=== PATIENT | female | born 1985 | race American Indian/Alaskan Native ===

== ENCOUNTER 2017-10-08 09:49 | Outpatient (CLI) | payer MEDICAID ==
--- NOTE | 2017-10-08 12:12 | Ultrasound Report ---
ULTRASOUND BIOPHYSICAL PROFILE: History: Nonreassuring heart rate pattern Technique: Transabdominal ultrasound with Doppler interrogation. 2 - breathing movements 2 - movements 2 - posture and tone 2 - Qualitative amniotic fluid volume 8 - TOTAL SCORE OF POSSIBLE 8 Heart Rate (bpm) 145
--- NOTE | 2017-10-08 12:14 | Ultrasound Report ---
ULTRASOUND OB LIMITED History: Nonreassuring heart tracing Technique: Transabdominal ultrasound with Doppler interrogation. Gestation: Single Position: Cephalic Amniotic Fluid: Normal ARAM = 11.9 cm Heart Rate: 145 BPM
[2017-10-08 13:56] VITALS: BP 128/70
== END 2017-10-08 14:10 | disposition home or self-care (01) ==
LOC: TRG 09:49
PROVIDERS: ATTEND Obstetrics & Gynecology
DX: O47.1 False labor at or after 37 completed weeks of gestation (principal); Z3A.39 39 weeks gestation of pregnancy
CPT/HCPCS: 59025; 76815; 76819

== ENCOUNTER 2017-10-09 09:20 | Outpatient (CLI) | payer MEDICAID ==
[2017-10-09 09:59] VITALS: BP 128/84
== END 2017-10-09 10:20 | disposition left against medical advice (07) ==
LOC: TRG 09:20
PROVIDERS: ATTEND Obstetrics & Gynecology
DX: O47.1 False labor at or after 37 completed weeks of gestation (principal); Z3A.39 39 weeks gestation of pregnancy
CPT/HCPCS: 59025

== ENCOUNTER 2017-10-09 23:24 | Inpatient (IN) | payer MEDICAID ==
[2017-10-09] MEDS ORDERED: LACTATED RINGERS 1,000 ML IV ONE (23:46)
[2017-10-10] MEDS ORDERED: STADOL IV PRN (00:12)
[2017-10-10] MEDS ORDERED: LACTATED RINGERS 1,000 ML ONE (00:36)
[2017-10-10 00:38] LABS: Basophils # (Auto) 0.1 K/mm3 (0.0-0.1); Basophils % (Auto) 0.7 % (0.0-1.8); Eosinophils % (Auto) 0.4 % (0.0-4.3); Hematocrit 32.8 % (30.3-42.9); Hemoglobin 10.1 gm/dl (10.1-14.3); Lymphocytes # (Auto) 3.3 K/mm3 (1.2-5.4); Lymphocytes % (Auto) 35.4 % (13.4-35.0); Mean Corpuscular HGB Conc 31 % (30-34); Monocytes # (Auto) 1.2 K/mm3 (0.0-0.8); Monocytes % (Auto) 12.3 % (0.0-7.3); Red Blood Count 4.95 M/mm3 (3.65-5.03)
[2017-10-10 00:40] LABS: Mean Corpuscular Volume 66 fl (79-97)
[2017-10-10 00:41] LABS: Mean Corpuscular Hemoglobin 20 pg (28-32); Platelet Count 170 K/mm3 (140-440)
[2017-10-10] MEDS ORDERED: NARCAN 2 MG/2 ML IV PRN (00:51)
--- NOTE | 2017-10-10 00:55 | Anesthesia Consultation ---
Anesthesia Consult and Med Hx Date of service: 10/10/17 - Airway Anesthetic Teeth Evaluation: Good ROM Head & Neck: Adequate Mental/Hyoid Distance: Adequate Mallampati Class: Class II Intubation Access Assessment: Good - Pulmonary Exam CTA: Yes - Cardiac Exam Cardiac Exam: RRR - Pre-Operative Health Status ASA Pre-Surgery Classification: ASA2 Proposed Anesthetic Plan: Epidural, Spinal - Pre-Anesthesia Comment Pre-Anesthesia Comments: 31y @ 39.4 - Pulmonary Hx Smoking: No Hx Asthma: No COPD: No Hx Pneumonia: No - Cardiovascular System Hx Hypertension: No Hx Coronary Artery Disease: No - Central Nervous System Hx Seizures: No Hx Psychiatric Problems: No - Endocrine Hx Renal Disease: No Hx End Stage Renal Disease: No Hx Liver Disease: No Hx Insulin Dependent Diabetes: No Hx Hypothyroidism: No Hx Hyperthyroidism: No - Hematic Hx Anemia: No Hx Sickle Cell Disease: No - Other Systems Hx Alcohol Use: No
[2017-10-10 00:59] LABS: Alanine Aminotransferase 10 units/L (7-56)
[2017-10-10] MEDS ORDERED: fentaNYL-BUPIV 2 MCG/ML-0.125% 200 MCG/100 ML BAG EPIDURAL SCH (01:00)
[2017-10-10 01:11] LABS: Uric Acid 4.9 mg/dL (3.5-7.6)
[2017-10-10 01:25] LABS: Bilirubin,Urine NEG (Negative); Blood,Urine NEG (Negative); Color,Urine Yellow (Yellow); Mucus,Urine 1+ /HPF; Nitrite,Urine NEG (Negative)
[2017-10-10] MEDS ORDERED: XYLOCAINE MPF 2% ONE (01:27)
[2017-10-10] MEDS: ePHEDrine SULFATE IV PRN ×2 (01:48→02:21)
[2017-10-10] MEDS ORDERED: PITOCin/NS 20 UNIT/1000ML DRIP 0 MILLIUNITS/0 ML BAG IV ONE (02:32)
--- NOTE | 2017-10-10 03:30 | History and Physical Report ---
History of Present Illness Date of examination: 10/10/17 Date of admission: 10/10/17 00:11 History of present illness: 31 yo LMP EDC 10/12/17 @ 39.5 weeks presented to triage at 6cm. Voiced contractions started at 1800 this evening. Denies LOF or vaginal bleeding. Good FM reported. Second trimester entry at 14 weeks into care. course complicated by anemia with iron BID and obesity. She is GBS negative. Past History Past Medical History: no pertinent history Past Surgical History: no surgical history Family/Genetic History: diabetes, hypertension Social history: no significant social history - Obstetrical History Expected Date of Delivery: 10/12/17 Actual Gestation: 39 Week(s) 5 Day(s) : 4 Para: 3 Hx # Term Pregnancies: 3 Number of Living Children: 3 Medications and Allergies Allergies Allergy/AdvReac Type Severity Reaction Status Date / Time No Known Allergies Allergy Verified 11/24/14 11:45 Home Medications Medication Instructions Recorded Confirmed Last Taken Type No Known Home Medications [No 10/10/17 10/10/17 Unknown History Reported Home Medications] Vit No.130/Iron/Folic 1 each PO 10/10/17 10/09/17 History [ Tablet] Active Meds: Active Medications Butorphanol Tartrate (Stadol) 2 mg IV Q2H PRN PRN Reason: Labor Pain Ephedrine Sulfate (Ephedrine Sulfate) 10 mg IV Q2M PRN PRN Reason: Hypotension Last Admin: 10/10/17 02:21 Dose: 10 mg Lactated Ringer's (Lactated Ringers) 1,000 mls @ 125 mls/hr IV BOLUS ONE Stop: 10/10/17 07:45 Last Admin: 10/10/17 01:00 Dose: 125 mls/hr Fentanyl/Bupivacaine/Sodium Chlor (Fentanyl-Bupiv 2 Mcg/Ml-0.125%) 200 mcg in 100 mls @ 12 mls/hr EPIDURAL TITR DEENA PRN Reason: Protocol Last Admin: 10/10/17 01:31 Dose: 12 mls/hr Naloxone HCl (Narcan 2 Mg/2 Ml) 0.2 mg IV Q5M PRN PRN Reason: Respiratory sedation Review of Systems All systems: negative Genitourinary: normal appearance, contractions, no vaginal bleeding, no leakage of fluid, no genital sores - Vital Signs Vital signs: Vital Signs Temp Resp 98.0 F 18 10/09/17 23:25 10/09/17 23:25 Temp Pulse Resp BP Pulse Ox 99.5 F 101 H 22 115/59 100 10/10/17 02:21 10/10/17 03:12 10/10/17 02:21 10/10/17 03:00 10/10/17 03:12 - Physical Exam Breasts: Positive: deferred Lungs: Positive: Normal air movement Abdomen: Positive: normal appearance, soft Genitourinary (Female): Positive: normal external genitalia, normal perenium Vagina: Positive: normal moisture - Obstetrical FHR: category 1 Uterine Contraction Monitor Mode: External Cervical Dilatation: 10 Cervical Effacement Percentage: 100 station: -2 Uterine Contraction Frequency (min): 2 Uterine Contraction Pattern: Regular Uterine Tone Measurement Phase: Resting Uterine Contraction Intensity: Moderate Results Result Diagrams: 10/10/17 00:00 10/10/17 00:00 Abnormal lab results 10/10/17 10/10/17 Range/Units 00:00 00:00 MCV 66 L (79-97) fl MCH 20 L (28-32) pg RDW 19.0 H (13.2-15.2) % Lymph % (Auto) 35.4 H (13.4-35.0) % Cotton % (Auto) 12.3 H (0.0-7.3) % Cotton # 1.2 H (0.0-0.8) K/mm3 Creatinine 0.5 L (0.7-1.2) mg/dL Lactate Dehydrogenase 213 H (91-180) units/L All other labs normal. Assessment and Plan A: IUP at term Second Stage Labor AROM-meconium fluid P: Poor maternal pushing effort Passive Descent NICU team for delivery
[2017-10-10] MEDS ORDERED: PITOCin/NS 20 UNIT/1000ML DRIP 20,000 MILLIUNITS/1,000 ML BAG IV ONE (04:35)
[2017-10-10] MEDS ORDERED: METHERGINE IM ONE ×2 (04:49→04:58)
--- NOTE | 2017-10-10 04:57 | Procedure Note ---
OB Delivery Note - Delivery Date of Delivery: 10/10/17 (7-11oz female @ 0438) Surgeon: JEANCARLOS RENDON Estimated blood loss: other (400) - Vaginal Delivery presentation: vertex Delivery position: OP Intrapartum events: none Delivery induction: none Delivery monitor: external FHT, external uterine Route of delivery: Delivery placenta: spontaneous Delivery cord: nuchal cord (loose x 1 reduced), 3 umbilical vessels Episiotomy: none Delivery laceration: none Anesthesia: epidural - A at 1 minute: 8 at 5 minutes: 9 Infant Gender: Female (Pushed for viable female. NICU present. Grimace at delivery. to warmer for NICU team evaluation. Bulb suctined only. skin to skin. Spont. placenta, cord blood collected. Pitocin infusing. Heavy lochia. Fundus messaged firm. bleeding continues to be moderate. Sweep of vagina with gauze, trailing membranes removed with small clots. Bleeding small. Methergine 0.2mg IM given. Perineal skid shayy only. on repair. Mother and infant stable.)
[2017-10-10] MEDS ORDERED: NORCO 5/325 PO PRN (04:59)
[2017-10-10] MEDS ORDERED: MILK OF MAGNESIA PO PRN (04:59)
[2017-10-10] MEDS ORDERED: LANSINOH TP PRN (04:59)
[2017-10-10] MEDS ORDERED: TYLENOL PO PRN (04:59)
[2017-10-10] MEDS ORDERED: TUCKS PAD TP PRN (04:59)
[2017-10-10] MEDS ORDERED: MOTRIN PO SCH (05:00)
[2017-10-10] MEDS ORDERED: SODIUM CHLORIDE FLUSH SYRINGE 10 ML IV PRN (05:00)
[2017-10-10] MEDS ORDERED: PITOCin/NS 20 UNIT/1000ML DRIP 20 UNITS/1,000 ML BAG IV SCH (05:00)
[2017-10-10] MEDS ORDERED: MOTRIN PO PRN (08:47)
[2017-10-10] MEDS ORDERED: MORPHINE IV NR (09:00)
[2017-10-10] MEDS: MOTRIN PO PRN (12:24)
[2017-10-10] MEDS: PRENATAL VITAMIN PO SCH (12:24)
[2017-10-10] MEDS: PERCOCET 5/325 PO PRN ×2 (14:00→17:57)
[2017-10-10 17:26] LABS: Hematocrit 27.8 % (30.3-42.9); Hemoglobin 8.7 gm/dl (10.1-14.3)
[2017-10-11] MEDS: MOTRIN PO PRN ×2 (00:42→12:00)
[2017-10-11] MEDS: PERCOCET 5/325 PO PRN ×2 (00:43→12:00)
[2017-10-11] MEDS ORDERED: M-M-R II VACCINE SUB-Q ONE (04:59)
[2017-10-11] MEDS ORDERED: BOOSTRIX IM ONE (06:00)
--- NOTE | 2017-10-11 11:17 | Progress Note ---
Assessment and Plan O: Elevated BP yesterday. NL now PIH panel negative A: Stable PP Day 1 Anemia P: Iron BID D/C home Rx meds Subjective - Subjective Date of service: 10/11/17 Interval history: 31 yo LMP EDC 10/12/17 @ 39.5 weeks presented to triage at 6cm. Voiced contractions started at 1800 this evening. Denies LOF or vaginal bleeding. Good FM reported. Second trimester entry at 14 weeks into care. course complicated by anemia with iron BID and obesity. She is GBS negative. Patient reports: appetite normal, voiding normally, pain well controlled, flatus , ambulating normally, other (c/o heavy vaginal bleeding since delivery with clots. Denies PIH S&S) : doing well, nursing well Objective - Vital Signs Latest vital signs: Vital Signs Temp Pulse Resp BP Pulse Ox 10/11/17 09:05 98.6 F 96 H 20 131/78 100 10/11/17 01:43 18 10/11/17 01:42 18 10/11/17 00:43 18 10/11/17 00:42 18 10/10/17 23:45 98.0 F 82 20 132/74 100 10/10/17 17:57 20 10/10/17 14:00 20 10/10/17 12:24 98.3 F 86 20 129/77 Intake and Output 10/10/17 10/11/17 10/11/17 22:59 06:59 14:59 Intake Total 480 600 480 Output Total 200 Balance 280 600 480 Intake: Oral 480 240 360 Intake, Free Water 360 120 Output: Urine 200 Void 200 Other: Total, Intake Amount 120 240 360 Total, Output Amount 200 Voiding Method Toilet # Voids Void 1 1 1 - Exam Narrative Exam: evaluation of bleeding. Scant. tiny clots with voiding Breasts: Present: normal, Lungs: Present: Normal air movement Abdomen: Present: normal appearance, soft. Absent: distention, tenderness Vulva: both: normal Uterus: Present: normal, firm, fundal height below umbilicus (2 below U, ML). Absent: bogginess, tenderness Extremities: Present: normal, edema - Labs Labs: Abnormal lab results 10/10/17 Range/Units 17:10 Hgb 8.7 L (10.1-14.3) gm/dl Hct 27.8 L (30.3-42.9) %
--- NOTE | 2017-10-11 11:21 | Discharge Summary ---
Providers - Providers Date of Admission: 10/10/17 00:11 Date of discharge: 10/11/17 Attending physician: KARLENE WILD MD Primary care physician: KARLENE WILD MD Hospitalization Reason for admission: active labor, IUP at term Delivery: Episiotomy: none Laceration: none Other procedures: none complications: none Discharge diagnosis: IUP at term delivered [place] baby: female Condition at discharge: Good Disposition: DC-01 TO HOME OR SELFCARE Plan - Discharge Medications Prescriptions: Ferrous Sulfate [Feosol 325 MG tab] 325 mg PO BID #60 tablet Ibuprofen [Motrin] 800 mg PO Q8HR PRN #30 tablet PRN Reason: Pain oxyCODONE /ACETAMINOPHEN [Percocet 5/325] 1 tab PO Q6HR PRN #30 tablet PRN Reason: Pain - Provider Discharge Summary Activity: routine, no sex for 6 weeks, no heavy lifting 4 weeks, no strenuous exercise Diet: routine Instructions: routine Additional instructions: [] Smoking cessation referral if applicable(refer to patient education folder for contact #) [] Refer to [facility] Booklet Call your doctor immediately for: * Fever > 100.5 * Heavy vaginal bleeding ( >1 pad per hour) * Severe persistent headache * Shortness of breath * Reddened, hot, painful area to leg or breast * Drainage or odor from incision. * Keep incision clean and dry at all times and follow doctor's instructions regarding bathing/showering - Follow up plan Follow up: IVANA TRAN MD [Staff Physician] - KARLENE WILD MD [Primary Care Provider] - 7 Days (RTO 1 week for BP check)
[2017-10-11] MEDS: PRENATAL VITAMIN PO SCH (12:00)
[2017-10-11 17:59] VITALS: BP 128/78
== END 2017-10-11 17:30 | disposition home or self-care (01) | DRG 775 ==
LOC: TRG 23:24 → LD 10-10 00:11 → OB 10-10 06:37
PROVIDERS: ADMIT Obstetrics & Gynecology; ATTEND Obstetrics & Gynecology
PROC: 10E0XZZ Delivery of Products of Conception, External Approach (ICD-10-PCS; principal; 2017-10-10)
PROC: 3E0234Z Introduction of Serum, Toxoid and Vaccine into Muscle, Percutaneous Approach (ICD-10-PCS; 2017-10-10)
PROC: 3E0R3BZ Introduction of Anesthetic Agent into Spinal Canal, Percutaneous Approach (ICD-10-PCS; 2017-10-10)
PROC: 00HU33Z Insertion of Infusion Device into Spinal Canal, Percutaneous Approach (ICD-10-PCS; 2017-10-10)
PROC: 10907ZC Drainage of Amniotic Fluid, Therapeutic from Products of Conception, Via Natural or Artificial Opening (ICD-10-PCS; 2017-10-10)
DX: O63.1 Prolonged second stage (of labor) (principal); O77.0 Labor and delivery complicated by meconium in amniotic fluid; O99.02 Anemia complicating childbirth; D64.9 Anemia, unspecified; O99.214 Obesity complicating childbirth; E66.9 Obesity, unspecified; O69.81X0 Labor and delivery complicated by cord around neck, without compression, not applicable or unspecified; Z68.37 Body mass index [BMI] 37.0-37.9, adult; Z3A.39 39 weeks gestation of pregnancy; Z37.0 Single live birth; Z23 Encounter for immunization; Z83.3 Family history of diabetes mellitus; Z82.49 Family history of ischemic heart disease and other diseases of the circulatory system
CPT/HCPCS: 36415; 81001; 82565; 83615; 84450; 84460; 84550; 85014; 85018; 85025; 86762; 86850; 86900; 86901; 90707; 99211; A6250; G0463; J2210; J2270; J2590; J7120